=== PATIENT | male | born 1985 | race African-American/Black ===

== ENCOUNTER 2020-11-07 21:03 | Emergency (ER) | payer OTHER ==
[~2020-11-07] VITALS: Ht 175.3 cm; Wt 104.3 kg
[2020-11-07 21:35] VITALS: BP 162/85
== END 2020-11-07 21:55 ==
LOC: ER 21:05
DX: Z02.89 Encounter for other administrative examinations (principal); Z86.73 Personal history of transient ischemic attack (TIA), and cerebral infarction without residual deficits